=== PATIENT | male | born 1990 | race Caucasian/White ===

== ENCOUNTER 2023-02-08 11:25 | Emergency (ER) | payer OTHER, SELFPAY ==
[2023-02-08 11:31] VITALS: BP 143/80; PULSE 108; RESP 18; TEMP 36.3; O2SAT 97
[2023-02-08] MEDS: SODIUM CHLORIDE 0.9% IV 1,000 ML 999 ML IV CONT ×3 (11:42→12:11)
[2023-02-08 11:57] LABS: Basophils Percent Auto 0.5 % (0.2-1.2); Eosinophils Absolute Auto 0.1 K/mm3 (0-0.3); Hematocrit 44.4 % (42.0-52.0); Hemoglobin 14.9 g/dL (14.0-18.0); Immature Granulocyte Absolute 0.01 K/mm3 (0.00-0.031); Immature Granulocyte Percent A 0.2 % (0-0.5); Lymphocytes Absolute Auto 0.36 K/mm3 (0.9-3.2); Mean Corpuscular HGB Conc 33.6 g/dl (32-36); Mean Corpuscular Hemoglobin 28.9 pg (26-34); Mean Platelet Volume 9.8 fl (7.4-10.4); Monocytes Absolute Auto 0.8 K/mm3 (0.1-0.6); Monocytes Percent Auto 13.3 % (2.6-8.5); Neutrophils Absolute Auto 4.7 K/mm3 (1.3-6.7); Platelet Count Result 209 k/mm3 (150-375); Red Blood Count 5.16 M/mm3 (4.6-6.20); Red Cell Distribution Width 12.7 % (11.5-14.5)
[2023-02-08 12:11] LABS: Alanine Aminotransferase 27 U/L (6-50); Albumin Level 4.6 g/dL (3.5-5.1); Alkaline Phosphatase 63 U/L (38-126); Anion Gap 11 mmol/L (8-16); Aspartate Amino Transferase 31 U/L (17-59); Bilirubin,Total 0.7 mg/dL (0.2-1.3); Blood Urea Nitrogen 18 mg/dL (9-20); Calcium 9.2 mg/dL (8.4-10.2); Carbon Dioxide 26 mmol/L (22-30); Chloride 105 mmol/L (98-107); Estimated CRCL calculation 99 ml/min; Estimated Glomerular Filt Rate > 60; Glucose 116 mg/dL (65-110); Lipase 80 U/L (23-300); Potassium 3.9 mmol/L (3.4-5.0); Sodium 142 mmol/L (137-145)
[2023-02-08] MEDS: ONDANSETRON INJ 4 MG/2 ML VIAL IV PUSH (12:11)
--- NOTE | 2023-02-08 12:44 | ED.GENADULT ---
HPI - General Adult General Chief complaint: Recheck/Abnormal Lab/Rx Stated complaint: dehydration Time Seen by Provider: 02/08/23 11:54 History of Present Illness HPI narrative: 32-year-old male presents emergency department for evaluation of intermittent nausea and vomiting. Patient had respiratory symptoms last week and was documented with a bronchitis. Patient was negative COVID at that time. Patient states yesterday started developing some persistent nausea and vomiting. Upon arrival to the emergency department patient was treated with IV fluids and IV Zofran patient does feel improved. Patient denies any current nausea vomiting or abdominal pain. Related Data Allergies Allergy/AdvReac Type Severity Reaction Status Date / Time Penicillins Allergy Hives Verified 02/08/23 11:33 Review of Systems Review of Systems: All systems reviewed & are unremarkable except as noted in HPI and below Exam Narrative: APPEARANCE: Well appearing, no pain, no distress, well-nourished. HEAD: normocephalic, atraumatic. EYES: PERRLA/EOMI, conjunctivae clear. NOSE: Normal no drainage NECK: Supple. No adenopathy, no masses. RESPIRATORY: Airway patent, respirations nonlabored. Clear to auscultation bilaterally, no rales, rhonchi, wheezing. CARDIOVASCULAR: Regular rate and rhythm without murmurs rubs or gallops. ABDOMINAL: Soft, nontender, nondistended, normal bowel sounds MUSCULOSKELETAL: Moves all extremities. Strength/ROM intact, No edema, No calf tenderness. NEURO: Alert. Cranial nerves II through XII intact. Grossly intact SKIN: Warm, dry. Normal Color Course Course Emergency Course: 32-year-old male present to the emergency department for evaluation of persistent nausea and vomiting. Patient was afebrile with no leukocytosis and a stable hemoglobin. No significant electrolyte abnormalities. Patient was negative for influenza RSV and for COVID. Patient did feel improved with treatment. Patient was encouraged to follow a clear liquid diet for the next few days. Patient was also provided Zofran for nausea control for home. Patient was up to the results of his work-up and for treatment plan for home. All questions and concerns were addressed and patient was well-appearing at time of discharge. Vital Signs Vital signs: Vital Signs Temperature 97.4 F L 02/08/23 11:31 Pulse Rate 108 H 02/08/23 11:31 Respiratory Rate 18 02/08/23 11:31 Blood Pressure 143/80 H 02/08/23 11:31 Pulse Oximetry 97 02/08/23 11:31 Temperature 97.4 F L 02/08/23 11:31 Pulse Rate 108 H 02/08/23 11:31 Respiratory Rate 18 02/08/23 11:31 Blood Pressure 143/80 H 02/08/23 11:31 Pulse Oximetry 97 02/08/23 11:31 Medical Decision Making Differential Diagnosis Differential Diagnosis: Dehydration, nausea vomiting, cannabinoid hyperemesis, appendicitis Vital Signs Vital Signs: Vital Signs Temperature 97.4 F L 02/08/23 11:31 Pulse Rate 108 H 02/08/23 11:31 Respiratory Rate 18 02/08/23 11:31 Blood Pressure 143/80 H 02/08/23 11:31 Pulse Oximetry 97 02/08/23 11:31 Temperature 97.4 F L 02/08/23 11:31 Pulse Rate 108 H 02/08/23 11:31 Respiratory Rate 18 02/08/23 11:31 Blood Pressure 143/80 H 02/08/23 11:31 Pulse Oximetry 97 02/08/23 11:31 Lab Data Lab results reviewed: Yes I reviewed the patient's lab results. 02/08/23 11:46 02/08/23 11:46 Labs: Lab Results 02/08/23 02/08/23 Range/Units 11:46 12:17 WBC 6.0 (4.5-10.0) K/mm3 RBC 5.16 (4.6-6.20) M/mm3 Hgb 14.9 (14.0-18.0) g/dL Hct 44.4 (42.0-52.0) % MCV 86.0 (80-100) fl MCH 28.9 (26-34) pg MCHC 33.6 (32-36) g/dl RDW 12.7 (11.5-14.5) % Plt Count 209 (150-375) k/mm3 MPV 9.8 (7.4-10.4) fl Immature Gran % (Auto) 0.2 (0-0.5) % Neut % (Auto) 79.0 H (45.5-73.1) % Lymph % (Auto) 6.0 L (18.3-44.2) % Mcminn % (Auto) 13.3 H (2.6-8.5) % Eos % (Auto) 1.0 (0-4.4
[2023-02-08 12:58] LABS: Influenza A QL RT-PCR Negative (Negative); Influenza B QL RT-PCR Negative (Negative); RSV RNA, RT-PCR Negative (Negative); SARS-CoV-2 RNA PCR Negative (Negative)
== END 2023-02-08 13:19 | disposition home or self-care (01) ==
PROVIDERS: Emergency Medicine; Emergency Provider Emergency Medicine; PCP Internal Medicine
DX: R11.2 Nausea with vomiting, unspecified (principal); Z20.822 Contact with and (suspected) exposure to COVID-19
CPT/HCPCS: 36415; 80053; 83690; 85025; 87637; 96361; 96374; 99284; J2405; J7030

== ENCOUNTER 2023-07-23 16:39 | Emergency (ER) | payer OTHER, SELFPAY ==
[2023-07-23 17:06] VITALS: BP 132/46; PULSE 57; RESP 16; TEMP 36.6; O2SAT 99
--- NOTE | 2023-07-23 18:59 | ED.SKABFB ---
HPI - Skin/Abscess/Foreign Bdy General Chief complaint: Skin/Abscess/Foreign Body Stated complaint: BLISTERS ON HANDS Time Seen by Provider: 07/23/23 17:32 Source: patient and RN notes reviewed Mode of arrival: ambulatory Limitations: no limitations History of Present Illness HPI narrative: Patient presents today with a 2 day history of large itching blisters to the palms of his hands. Patient had poison valarie last week and was given some hydroxyzine and prednisone 1 week ago. States symptoms were not improving and was started on Bactrim and a topical steroid 2 days ago. Patient denies any additional sick symptoms. States the rash on his hands is no were else on his body. He does report the poison valarie symptoms that are primarily on his bilateral lower legs are improving. Related Data Home Medications Medication Instructions Recorded Confirmed clobetasol 0.05 % topical cream 1 applic topical BID 07/23/23 07/23/23 hydroxyzine HCl 25 mg tablet 25 mg Q6-8H PRN Itching 07/23/23 07/23/23 prednisone 10 mg tablet 10 mg DAILY 07/23/23 07/23/23 Allergies Allergy/AdvReac Type Severity Reaction Status Date / Time Penicillins Allergy Hives Verified 02/08/23 11:33 Review of Systems Review of Systems: CONSTITUTIONAL: Denies body aches, fever, chills, or sweats. EYES: Denies visual changes, redness, or discharge. ENT: Denies rhinorrhea, congestion, sore throat, or otalgia. CARDIOVASCULAR: Denies chest pain, palpitations, or edema. RESPIRATORY: Denies cough or dyspnea. GASTROINTESTINAL: Denies abdominal pain, nausea, vomiting, or diarrhea. GENITOURINARY: Denies dysuria or hematuria. SKIN: + rash MUSCULOSKELETAL: Denies back pain, joint pain, or myalgia. NEUROLOGIC: Denies headache, numbness, tingling, or weakness. PSYCH: Denies depression or anxiety. PMFSH Comments Reviewed Exam Narrative: GENERAL: Well-appearing, well-nourished, and in no acute distress. HEAD: Normocephalic, atraumatic. EYES: EOMI. No redness or drainage. Conjunctivae normal. ENT: Mucous membranes pink and moist. Nares clear. No rhinorrhea. Throat normal. Uvula midline. Tongue normal, lips normal NECK: Normal AROM. Supple. No lymphadenopathy. CHEST: No respiratory distress. EXTREMITIES: Normal range of motion. No edema. SKIN: Warm, dry. Capillary refill normal. Normal skin turgor. Healing poison valarie to bilateral lower legs. Patient has large, round, macular lesions with erythematous ring around the margins spread diffusely on the bilateral palms as well as on the plantar aspect of the right foot and medial aspect. No vesicles noted. NEURO: No focal deficits. Alert and oriented x3. Gait steady. PSYCH: Normal affect. No signs of depression or anxiety. Course Course Level of Care: Express Care Visit Vital Signs Vital signs: Vital Signs Temperature 97.8 F 07/23/23 17:06 Pulse Rate 57 L 07/23/23 17:06 Respiratory Rate 16 07/23/23 17:06 Blood Pressure 132/46 L 07/23/23 17:06 Pulse Oximetry 99 07/23/23 17:06 Temperature 97.8 F 07/23/23 17:06 Pulse Rate 57 L 07/23/23 17:06 Respiratory Rate 16 07/23/23 17:06 Blood Pressure 132/46 L 07/23/23 17:06 Pulse Oximetry 99 07/23/23 17:06 Reviewed MDM - Skin/Abscess/Foreign Bdy MDM Narrative Medical decision making narrative: The distribution as patient's rash on his bilateral hands and right foot are consistent with [id number]. While he does not have any lesions in his mouth, he has been on some recent corticosteroids as well. Discussed diagnosis and reasons to follow-up with his PCP. Patient does have small children at home. None of them are currently ill. Anticipatory guidance given. Differential Diagnosis Differential diagnosis: Likely abscess of skin or subcutaneous tissue, viral exanthem, dermatophytosis, urticaria, allergic reaction to drug, cellulitis, eczema, contact dermatitis and other ([id number]) Critical Care Time Critical Care T
== END 2023-07-23 17:50 | disposition home or self-care (01) ==
PROVIDERS: Emergency Provider Nurse Practitioner; PCP Internal Medicine
DX: B08.4 Enteroviral vesicular stomatitis with exanthem (principal)
CPT/HCPCS: 99211; G0463

== ENCOUNTER 2023-08-10 11:08 | Emergency (ER) | payer OTHER, SELFPAY ==
--- NOTE | 2023-08-10 11:22 | ED.URI ---
HPI - URI/Sore Throat General Chief Complaint: Upper Respiratory Infection Stated Complaint: SORE THROAT/CHILLS/FEVER Time Seen by Provider: 08/10/23 11:32 Source: patient, RN notes reviewed and old records reviewed Mode of arrival: ambulatory Limitations: no limitations History of Present Illness HPI Narrative: 32 year old male patient who presents to [facility] care with complaints of sore throat with some fevers chills and sweats SINCE YESTERDAY. He states that on Wednesday he had sinus drainage and some congestion and mild sore throat but thought it was from sinus drainage. Patient reports that he had fever and body aches last night and increased soreness to his throat today. Patient has been taking Tylenol and Zyrtec and nasal spray for his symptoms. MD elicited complaint: cough and sore throat Pertinent past history: seasonal allergies and other (previous strep) Onset (ago): day(s) (day 2 of symptoms) Consistency: progressively worsening Severity: moderate Able to tolerate fluids by mouth: Yes Treatments prior to arrival: acetaminophen and other (zyrtec and nasal spray) Related Data Allergies Allergy/AdvReac Type Severity Reaction Status Date / Time Penicillins Allergy Hives Verified 08/10/23 11:12 sulfamethoxazole Allergy Hives Verified 08/10/23 11:32 [From Bactrim] trimethoprim [From Bactrim] Allergy Hives Verified 08/10/23 11:32 Review of Systems Review of Systems: CONSTITUTIONAL:Reports malaise, chills, sweats, or fever. EYES: Denies visual changes, redness, or discharge. ENT: Reports rhinorrhea, congestion, sinus pressure, no otalgia and positive for sore throat. CARDIOVASCULAR: Denies chest pain, palpitations, or edema. RESPIRATORY: Reports no cough.? Denies dyspnea. GASTROINTESTINAL: Denies abdominal pain, nausea, vomiting, diarrhea SKIN: Denies rash or itching. MUSCULOSKELETAL: reports myalgia. NEUROLOGIC: Denies headache. All systems reviewed & are unremarkable except as noted in HPI and below PMFSH Past Medical History Medical History (Updated 08/10/23 @ 11:49 by Sindi Noriega NP) Seasonal allergies Strep throat Social History Social History (Updated 08/10/23 @ 11:50 by Sindi Noriega NP) Smoking status: Never smoker Alcohol intake: current Alcohol use details: rare social Substance use type: does not use Living arrangements: with family Gender identity (if verbalized by the patient): Male Comments At time of signature, agree with nursing past medical, surgical, social and family history. There is no relevant family history pertinent to the presenting complaint Exam Narrative: GENERAL: Well-appearing, well-nourished, and in no acute distress. HEAD: Normocephalic EYES: PERRLA, conjunctivae clear ENT: Nares clear, turbinates edematous and erythematous, clear discharge. Mucous membranes moist. TM pearly ray with dull light reflex bilaterally; no tragal tenderness. Oropharynx erythematous without lesions. Tonsils red and enlarged enlarged and with white exudate, no drooling, no hoarseness, no trismus, uvula midline. NECK: Supple. lymphadenopathy CHEST: Clear to auscultation, breath sounds equal. No wheezing, rhonchi, rales, or stridor. No respiratory distress, speaks in full sentences.SAO2 98% on room air. HEART: Regular rate and rhythm. No murmur heard. SKIN: Warm, dry, no rash. NEURO: Alert and oriented x3. PSYCH: Normal mood and affect Course Course Emergency Course: Patient is aware of diagnosis, understands and agrees to treatment plan.? Anticipatory guidance given.? Patient agrees to follow-up as directed and is aware of reasons to seek care at the emergency department. Portions of this record may have been created with voice recognition software Level of Care: Express Care Visit Vital Signs Vital signs: Reviewed MDM - URI/Sore Throat MDM Narrative Medical decision making narrative: Differential diagnosis considered: Cor
[2023-08-10 11:23] VITALS: BP 120/54; PULSE 97; RESP 16; TEMP 36.2; O2SAT 98
[2023-08-10 11:32] VITALS: BP 120/54; PULSE 97; RESP 16; TEMP 36.2; O2SAT 98
== END 2023-08-10 11:41 | disposition home or self-care (01) ==
PROVIDERS: Emergency Provider Registered Nurse; PCP Internal Medicine
DX: J02.0 Streptococcal pharyngitis (principal)
CPT/HCPCS: 87880; 99213; G0463